=== PATIENT | male | born 1940 | race Two or more races ===

== ENCOUNTER → 2018-02-12 | Emergency (ER) | payer OTHER ==
[~2018-02-12] VITALS: Ht 182.9 cm; Wt 86.2 kg
[~2018-02-12] MED LIST: ALLOPURINOL300 MG PO; COZAAR100 MG PO; LOSARTAN POTAS100 MG
== END | disposition designated cancer center or children's hospital (05) ==
LOC: ER 17:13
DX: S73.035A Other anterior dislocation of left hip, initial encounter (principal); X58.XXXA Exposure to other specified factors, initial encounter; Y93.89 Activity, other specified; Y92.89 Other specified places as the place of occurrence of the external cause; Y99.8 Other external cause status

== ENCOUNTER 2018-02-22 09:19 | Inpatient (IN) | payer OTHER ==
[~2018-02-22] VITALS: Ht 172.7 cm; Wt 72.6 kg
[~2018-02-22 09:19] MED LIST changes: -ALLOPURINOL300 MG PO; -COZAAR100 MG PO
[2018-02-22] MEDS ORDERED: LOSARTAN POTAS100 MG (09:52)
[2018-03-06] MEDS ORDERED: COZAAR100 MG PO (13:09)
[2018-03-06] MEDS ORDERED: ALLOPURINOL300 MG PO (13:09)
[2018-03-08] MEDS ORDERED: ELIQUIS2.5 MG PO (14:45)
[2018-03-08] MEDS ORDERED: ULTRACET PO (14:45)
== END 2018-03-08 19:04 | disposition home or self-care (01) | DRG 560 ==
LOC: ER 09:19 → SURG 19:38 → SURH 19:38 → MEDI 21:49 → SURG 02-23 18:23 → SURH 02-25 18:27
PROC: 2W6 Placement, Anatomical Regions, Traction (ICD-10-PCS; principal; 2018-02-22)
PROC: 4A033R1 Measurement of Arterial Saturation, Peripheral, Percutaneous Approach (ICD-10-PCS; 2018-02-22)
DX: M97.02XA Periprosthetic fracture around internal prosthetic left hip joint, initial encounter (principal); D62 Acute posthemorrhagic anemia; N17.8 Other acute kidney failure; T84.021A Dislocation of internal left hip prosthesis, initial encounter; Y83.8 Other surgical procedures as the cause of abnormal reaction of the patient, or of later complication, without mention of misadventure at the time of the procedure; Y92.098 Other place in other non-institutional residence as the place of occurrence of the external cause; I10 Essential (primary) hypertension; M10.062 Idiopathic gout, left knee; M16.12 Unilateral primary osteoarthritis, left hip; Z74.01 Bed confinement status

== ENCOUNTER 2018-04-12 14:31 | Outpatient (CLI) | payer OTHER ==
[~2018-04-12 14:31] MED LIST changes: +ALLOPURINOL300 MG PO; +COZAAR100 MG PO; +ELIQUIS2.5 MG PO; +ULTRACET PO
== END 2018-04-12 14:44 | disposition home or self-care (01) ==
LOC: RAD 14:31
DX: D50.8 Other iron deficiency anemias (principal); D53.0 Protein deficiency anemia; M16.12 Unilateral primary osteoarthritis, left hip; I10 Essential (primary) hypertension

== ENCOUNTER → 2018-04-19 | Outpatient (CLI) | payer OTHER | END | disposition home or self-care (01) | LOC: RAD 12:13 | DX: M97.02XA Periprosthetic fracture around internal prosthetic left hip joint, initial encounter (principal); T84.021S Dislocation of internal left hip prosthesis, sequela; M21.752 Unequal limb length (acquired), left femur ==

== ENCOUNTER 2018-04-22 10:54 | Outpatient (CLI) | payer OTHER | END 2018-04-22 10:55 | disposition home or self-care (01) | LOC: LAB 10:54 | DX: D64.89 Other specified anemias (principal); E88.89 Other specified metabolic disorders; D68.8 Other specified coagulation defects; N39.0 Urinary tract infection, site not specified; A49.02 Methicillin resistant Staphylococcus aureus infection, unspecified site; I49.8 Other specified cardiac arrhythmias ==

== ENCOUNTER 2018-05-01 17:12 | Inpatient (IN) | payer OTHER ==
[~2018-05-01] VITALS: Ht 165.1 cm; Wt 83.5 kg
[2018-05-02] MEDS ORDERED: ULTRACET PO (09:13)
[2018-05-10] MEDS ORDERED: XARELTO10 MG PO (16:24)
[2018-05-10] MEDS ORDERED: ULTRACET PO (16:26)
[2018-05-10] MEDS ORDERED: SIDEROL TABLET1 EACH PO (16:27)
== END 2018-05-10 19:07 | disposition home or self-care (01) | DRG 466 ==
LOC: O/R 05-06 06:20 → SURG 05-06 07:00 → SURH 05-10 12:39
PROVIDERS: Orthopaedic Surgery
PROC: 0SWB0JZ Revision of Synthetic Substitute in Left Hip Joint, Open Approach (ICD-10-PCS; principal; 2018-05-06 07:00)
PROC: B246ZZZ Ultrasonography of Right and Left Heart (ICD-10-PCS; 2018-05-07)
PROC: 30233N1 Transfusion of Nonautologous Red Blood Cells into Peripheral Vein, Percutaneous Approach (ICD-10-PCS; 2018-05-07)
PROC: 4A033R1 Measurement of Arterial Saturation, Peripheral, Percutaneous Approach (ICD-10-PCS; 2018-05-07)
DX: S72.112A Displaced fracture of greater trochanter of left femur, initial encounter for closed fracture (principal); T81.19XA Other postprocedural shock, initial encounter; T84.021A Dislocation of internal left hip prosthesis, initial encounter; D62 Acute posthemorrhagic anemia; I97.89 Other postprocedural complications and disorders of the circulatory system, not elsewhere classified; I12.9 Hypertensive chronic kidney disease with stage 1 through stage 4 chronic kidney disease, or unspecified chronic kidney disease; N18.1 Chronic kidney disease, stage 1; I48.0 Paroxysmal atrial fibrillation; S50.821A Blister (nonthermal) of right forearm, initial encounter

== ENCOUNTER 2018-07-19 09:53 | Outpatient (CLI) | payer OTHER ==
[~2018-07-19 09:53] MED LIST changes: +SIDEROL TABLET1 EACH PO; +XARELTO10 MG PO
== END 2018-07-19 10:18 | disposition home or self-care (01) ==
LOC: RAD 09:53
DX: Z96.642 Presence of left artificial hip joint (principal)

== ENCOUNTER → 2020-11-25 | Outpatient (CLI) | payer OTHER | END | disposition home or self-care (01) | LOC: RAD 15:49 | PROVIDERS: ATTEND Orthopaedic Surgery | DX: M25.551 Pain in right hip (principal); Z96.642 Presence of left artificial hip joint; M79.652 Pain in left thigh; M25.562 Pain in left knee ==

== ENCOUNTER 2022-01-23 07:31 | Outpatient (CLI) | payer OTHER | END 2022-01-23 07:32 | disposition home or self-care (01) | LOC: NUCLEAR 07:31 | PROVIDERS: ATTEND Orthopaedic Surgery | DX: T84.031D Mechanical loosening of internal left hip prosthetic joint, subsequent encounter (principal) | CPT/HCPCS: 78315; A9503 ==

== ENCOUNTER 2022-01-25 10:39 | Outpatient (CLI) | payer OTHER | END 2022-01-25 10:40 | disposition home or self-care (01) | LOC: NUCLEAR 10:39 | PROVIDERS: ATTEND Orthopaedic Surgery | DX: T84.031D Mechanical loosening of internal left hip prosthetic joint, subsequent encounter (principal) | CPT/HCPCS: 78300; A9556 ==

== ENCOUNTER 2022-04-17 11:12 | Outpatient (CLI) | payer OTHER | END 2022-04-17 13:02 | disposition home or self-care (01) | LOC: SONOGRAMA 11:12 | DX: N18.32 Chronic kidney disease, stage 3b (principal) ==

== ENCOUNTER 2023-03-29 12:43 | Outpatient (CLI) | payer OTHER | END 2023-03-29 12:44 | disposition home or self-care (01) | LOC: NUCLEAR 12:43 | DX: N18.31 Chronic kidney disease, stage 3a (principal); N28.1 Cyst of kidney, acquired ==

== ENCOUNTER 2023-08-24 09:49 | Outpatient (CLI) | payer OTHER | END 2023-08-24 09:54 | disposition home or self-care (01) | LOC: SONOGRAMA 09:49 | DX: N28.1 Cyst of kidney, acquired (principal) ==

== ENCOUNTER 2024-06-04 11:12 | Emergency (ER) | payer OTHER ==
[~2024-06-04] VITALS: Ht 175.3 cm; Wt 84.4 kg
[2024-06-04] MEDS ORDERED: OMEPRAZOLE MAGN20 MG (11:33)
[2024-06-04 11:34] VITALS: BP 136/83; O2SAT 98
== END 2024-06-04 15:12 | disposition home or self-care (01) ==
LOC: ER 11:14
DX: S50.02XA Contusion of left elbow, initial encounter (principal); S70.12XA Contusion of left thigh, initial encounter; S80.02XA Contusion of left knee, initial encounter; W18.39XA Other fall on same level, initial encounter; Y93.89 Activity, other specified; Y92.018 Other place in single-family (private) house as the place of occurrence of the external cause; Y99.9 Unspecified external cause status; M25.50 Pain in unspecified joint; I10 Essential (primary) hypertension

== ENCOUNTER 2024-12-03 11:14 | Outpatient (CLI) | payer OTHER ==
[~2024-12-03 11:14] MED LIST changes: +OMEPRAZOLE MAGN20 MG
== END 2024-12-03 11:21 | disposition home or self-care (01) ==
LOC: SONOGRAMA 11:14
DX: N28.1 Cyst of kidney, acquired (principal)